=== PATIENT | female | born 1960 | race Caucasian/White ===

== ENCOUNTER → 2020-07-02 15:59 | Outpatient (CLI) | payer OTHER, SELFPAY ==
--- NOTE | ~2020-07-02 | XR_ITS ---
. EXAMINATION: XR_[id number]_CR DATE: 07/02/2020 16:35 INDICATION: Neck pain. TECHNIQUE: 3 views of cervical spine were obtained. COMPARISON: None. FINDINGS: There is 11 degrees levoscoliosis of upper thoracic spine. Vertebral body heights are fredo l. There are changes of anterior fusion procedure from C5 to C7 with interbody bone graft and anterio r plate and screws. There is mildly decreased disc height at C7-T1. There is multilevel facet joint o steoarthritis, moderate to severe at C7-T1. No central canal stenosis or prevertebral soft tissue swe lling. IMPRESSION: 1. Anterior fusion procedure from C5 to C7. 2. Mild cervical spondylosis. 3. Upper thoracic levoscoliosis. Reviewed, dictated and finalized at location A.
== END ==
DX: M47.22 Other spondylosis with radiculopathy, cervical region (principal); Z98.1 Arthrodesis status
CPT/HCPCS: 72040

== ENCOUNTER → 2022-02-13 15:43 | Outpatient (CLI) | payer OTHER, SELFPAY ==
--- NOTE | ~2022-02-13 | XR_ITS ---
EXAMINATION: XR knee LT 3V, XR knee RT 3V DATE: 02/13/2022 16:51 INDICATION: Bilateral knee pain. TECHNIQUE: 1. Weight bearing anteroposterior, sunrise, and flexed lateral views of the left knee were obtained. 2. Weight bearing anteroposterior, sunrise, and flexed lateral views of the right knee were obtained COMPARISON: None. FINDINGS: Alignment is normal at both the left and right knees. No fracture. Mild joint space narrowing at the medial side of the right patellofemoral compartment with suggestion of a few subtle subarticular benjamin encies along the right patellar apical ridge consistent with mild osteoarthritis. The joint space at the bilateral medial and lateral compartments and left patellofemoral compartment appear normal. No j oint effusion/layering lipohemarthrosis. Soft tissues are unremarkable. IMPRESSION: 1. Mild right patellofemoral osteoarthritis. Otherwise negative bilateral knee radiographs. Reviewed, dictated and finalized at location A. IMPRESSION: 1. Mild right patellofemoral osteoarthritis. Otherwise negative bilateral knee radiographs.
--- NOTE | ~2022-02-13 | XR_ITS ---
EXAM: XR hand RT min 3V HISTORY: Pain in right hand COMPARISON: None available FINDINGS: Normal mineralization. No fracture or dislocation. No lytic or blastic lesion. Joint space s maintained. No erosion or periosteal change. Soft tissues within normal limits. IMPRESSION: Normal right hand radiograph findings. Reviewed, dictated and finalized at location K.
--- NOTE | ~2022-02-13 | XR_ITS ---
EXAM: XR hand LT min 3V HISTORY: Pain in left hand COMPARISON: None available FINDINGS: Normal mineralization. No fracture or dislocation. No lytic or blastic lesion. Joint space s maintained. No erosion or periosteal change. Soft tissues within normal limits. IMPRESSION: Normal left hand radiograph findings. Reviewed, dictated and finalized at location K.
== END ==
DX: M25.561 Pain in right knee (principal); M25.562 Pain in left knee; R76.8 Other specified abnormal immunological findings in serum; M79.641 Pain in right hand; M79.642 Pain in left hand; M17.11 Unilateral primary osteoarthritis, right knee
CPT/HCPCS: 73130; 73562